=== PATIENT | female | born 1990 | race Caucasian/White ===

== ENCOUNTER 2017-12-15 08:37 | Emergency (ER) | payer MEDICAID ==
[~2017-12-15] VITALS: Ht 170.2 cm; Wt 89.0 kg
[~2017-12-15 08:37] MED LIST: HYDR-3240 PO; PNV1TABL11 PO; RANI150T23 PO
[2017-12-15 08:41] VITALS: BP 108/64
[2017-12-15] MEDS ORDERED: OXYC-302 PO (08:54)
[2017-12-15] MEDS ORDERED: FAMOTIDINE 20 MG TABLET ONE (09:10)
[2017-12-15] MEDS ORDERED: HYDROmorphone 2 MG/ML, 1ML ONE (09:10)
[2017-12-15] MEDS ORDERED: ONDANSETRON ODT 4 MG ONE (09:10)
[2017-12-15] MEDS ORDERED: ONDANSETRON ODT 4 MG PO ONE (09:30)
[2017-12-15] MEDS ORDERED: FAMOTIDINE 20 MG TABLET PO ONE (09:30)
[2017-12-15] MEDS ORDERED: HYDROmorphone 1 MG/ML, 1ML IM ONE (09:30)
== END 2017-12-15 10:47 | disposition home or self-care (01) ==
LOC: ED 10:00
DX: S82.65XA Nondisplaced fracture of lateral malleolus of left fibula, initial encounter for closed fracture (principal); N80.9 Endometriosis, unspecified; F17.210 Nicotine dependence, cigarettes, uncomplicated; W18.39XA Other fall on same level, initial encounter; Y93.89 Activity, other specified; Y92.89 Other specified places as the place of occurrence of the external cause; Y99.8 Other external cause status
CPT/HCPCS: 29515; 73590; 96372; 99284; J1170; Q0162

== ENCOUNTER 2018-02-10 10:49 | Emergency (ER) | payer MEDICAID ==
[~2018-02-10] VITALS: Ht 170.2 cm; Wt 89.9 kg
[~2018-02-10 10:49] MED LIST changes: +OXYC-302 PO
[2018-02-10 10:55] VITALS: BP 120/71
[2018-02-10] MEDS ORDERED: SODIUM CHLORIDE 0.9% 1,000ML IVBOLUS ONE (12:30)
[2018-02-10] MEDS ORDERED: ONDANSETRON 2MG/ML, 2ML IVPush ONE (12:30)
[2018-02-10 13:12] LABS: BASOPHILS # (AUTO) 0.05 x10^3/uL (0-0.1); BASOPHILS % (AUTO) 1 % (0-1); EOSINOPHILS # (AUTO) 0.06 x10^3/uL (0-0.4); EOSINOPHILS % (AUTO) 1 % (1-7); LYMPHOCYTES # (AUTO) 2.61 x10^3/uL (1-3.4); LYMPHOCYTES % (AUTO) 25 % (22-44); MD NO; MEAN CORPUSCULAR HEMOGLOBIN 28.7 pg (27.0-34.8); MEAN CORPUSCULAR HGB CONC 34.2 g/dL (32.4-35.8); MEAN CORPUSCULAR VOLUME 83.7 fL (80-100); MEAN PLATELET VOLUME 8.4 fL (7.4-10.4); MONOCYTES # (AUTO) 0.45 x10^3/uL (0.2-0.8); MONOCYTES % (AUTO) 4 % (2-9); NEUTROPHILS # (AUTO) 7.13 x10^3/uL (1.8-6.8); NEUTROPHILS % (AUTO) 69 % (42-75); PLATELET COUNT 330 x10^3/uL (130-400); RED BLOOD COUNT 4.95 x10^6/uL (3.82-5.3); RED CELL DISTRIBUTION WIDTH 16.5 % (9.6-15.2)
[2018-02-10 13:18] LABS: ALBUMIN 3.4 g/dL (3.4-5.0); ANION GAP 8 mmol/L (5-15); CALCIUM 8.3 mg/dL (8.5-10.1); CHLORIDE 107 mmol/L (98-107)
[2018-02-10] MEDS ORDERED: ONDANSETRON 2MG/ML, 2ML ONE (13:26)
[2018-02-10] MEDS ORDERED: ACETAMINOPHEN 500 MG TABLET ONE (13:26)
[2018-02-10] MEDS ORDERED: ACETAMINOPHEN 500 MG TABLET PO ONE (13:30)
[2018-02-10 13:34] LABS: MICROSCOPIC NOT IND
[2018-02-10 13:37] LABS: CULTURE INDICATED? NO
[2018-02-10 13:39] LABS: ALANINE AMINOTRANSFERASE 15 U/L (12-78); ALKALINE PHOSPHATASE 51 U/L (45-117); BILIRUBIN,TOTAL 0.3 mg/dL (0.2-1.0); CREATININE 0.47 mg/dL (0.55-1.02); TOTAL PROTEIN 7.9 g/dL (6.4-8.2)
[2018-02-10] MEDS ORDERED: PREN1TAB28 PO (13:46)
== END 2018-02-10 14:48 | disposition home or self-care (01) ==
LOC: ED 14:42
DX: O26.891 Other specified pregnancy related conditions, first trimester (principal); O21.9 Vomiting of pregnancy, unspecified; R11.0 Nausea; E86.0 Dehydration; Z3A.12 12 weeks gestation of pregnancy
CPT/HCPCS: 36415; 76801; 80053; 81003; 84702; 85025; 96361; 96374; 99285; J2405; J7030

== ENCOUNTER 2018-03-12 10:01 | Emergency (ER) | payer MEDICAID ==
[~2018-03-12] VITALS: Ht 170.2 cm; Wt 88.4 kg
[~2018-03-12 10:01] MED LIST changes: +PREN1TAB28 PO
[2018-03-12] MEDS ORDERED: METOCLOPRAMIDE 5 MG/ML, 2ML IVPush ONE (12:00)
[2018-03-12] MEDS ORDERED: SODIUM CHLORIDE FLUSH 10ML SYR IVF ONE (12:00)
[2018-03-12] MEDS ORDERED: SODIUM CHLORIDE 0.9% 1,000ML IVBOLUS ONE ×2 (12:00→13:30)
[2018-03-12 12:10] LABS: BASOPHILS # (AUTO) 0.05 x10^3/uL (0-0.1); BASOPHILS % (AUTO) 1 % (0-1); EOSINOPHILS # (AUTO) 0.02 x10^3/uL (0-0.4); EOSINOPHILS % (AUTO) 0 % (1-7); LYMPHOCYTES # (AUTO) 2.55 x10^3/uL (1-3.4); LYMPHOCYTES % (AUTO) 29 % (22-44); MD NO; MEAN CORPUSCULAR HEMOGLOBIN 29.1 pg (27.0-34.8); MEAN CORPUSCULAR HGB CONC 34.6 g/dL (32.4-35.8); MEAN CORPUSCULAR VOLUME 84.2 fL (80-100); MEAN PLATELET VOLUME 8.2 fL (7.4-10.4); MONOCYTES # (AUTO) 0.41 x10^3/uL (0.2-0.8); MONOCYTES % (AUTO) 5 % (2-9); NEUTROPHILS # (AUTO) 5.87 x10^3/uL (1.8-6.8); NEUTROPHILS % (AUTO) 66 % (42-75); PLATELET COUNT 309 x10^3/uL (130-400); RED BLOOD COUNT 4.62 x10^6/uL (3.82-5.3); RED CELL DISTRIBUTION WIDTH 14.3 % (9.6-15.2)
[2018-03-12] MEDS ORDERED: METOCLOPRAMIDE 5 MG/ML, 2ML ONE (12:10)
[2018-03-12 12:24] LABS: ALBUMIN 3.2 g/dL (3.4-5.0); ANION GAP 8 mmol/L (5-15); CALCIUM 8.4 mg/dL (8.5-10.1); CHLORIDE 107 mmol/L (98-107)
[2018-03-12 12:27] LABS: ALANINE AMINOTRANSFERASE 14 U/L (12-78); ALKALINE PHOSPHATASE 49 U/L (45-117); BILIRUBIN,TOTAL 0.3 mg/dL (0.2-1.0); CREATININE 0.42 mg/dL (0.55-1.02); TOTAL PROTEIN 7.3 g/dL (6.4-8.2)
[2018-03-12 13:44] LABS: MICROSCOPIC INDICATED
[2018-03-12 14:00] LABS: CULTURE INDICATED? NO
[2018-03-12 14:20] VITALS: BP 108/54
== END 2018-03-12 14:42 | disposition home or self-care (01) ==
LOC: ED 14:36
DX: O26.892 Other specified pregnancy related conditions, second trimester (principal); O21.9 Vomiting of pregnancy, unspecified; R11.0 Nausea; E83.42 Hypomagnesemia; Z3A.17 17 weeks gestation of pregnancy
CPT/HCPCS: 36415; 80053; 81001; 83735; 85025; 96361; 96374; 99284; J2765; J7030

== ENCOUNTER 2018-05-15 07:36 | Outpatient (CLI) | payer MEDICAID ==
[~2018-05-15] VITALS: Ht 170.2 cm; Wt 88.6 kg
[2018-05-15 07:44] VITALS: BP 110/63
[2018-05-15 08:32] LABS: AMPHETAMINE SCREEN, URINE Negative (Negative); BARBITURATE SCREEN, URINE Negative (Negative); BENZODIAZEPINE SCREEN, URINE Negative (Negative); CANNABINOID SCREEN, URINE Positive (Negative); COCAINE SCREEN, URINE Negative (Negative); METHADONE SCREEN, URINE Negative (Negative); OPIATE SCREEN, URINE Negative (Negative)
[2018-05-15] MEDS ORDERED: ACETAMINOPHEN 325 MG TABLET ONE (08:36)
[2018-05-15 08:48] LABS: MICROSCOPIC INDICATED
[2018-05-15] MEDS ORDERED: ACETAMINOPHEN 325 MG TABLET PO ONE (09:00)
== END 2018-05-15 09:15 | disposition home or self-care (01) ==
LOC: LDOP 07:36
PROVIDERS: ATTEND Obstetrics & Gynecology
DX: O26.892 Other specified pregnancy related conditions, second trimester (principal); Z3A.25 25 weeks gestation of pregnancy; T62.91XA Toxic effect of unspecified noxious substance eaten as food, accidental (unintentional), initial encounter
CPT/HCPCS: 59025; 80307; 81001; 87086; 99211; G0463